=== PATIENT | male | born 1955 | race Caucasian/White ===

== ENCOUNTER 2020-10-17 22:17 | Emergency (ER) | payer BC ==
[~2020-10-17] VITALS: Ht 188 cm; Wt 86.4 kg
[2020-10-17] MEDS ORDERED: IV NORMAL SALINE 1000ML BAG 1,000 ML IV ONE (23:30)
[2020-10-17] MEDS ORDERED: DIPH,PERTUSS(ACELL),TET VAC/PF 0.5 ML SYRINGE. VAX IM ONE (23:45)
[2020-10-17] MEDS ORDERED: METOCLOPRAMIDE HCL 10 MG/2 ML VIAL. IVP ONE (23:45)
[2020-10-17] MEDS ORDERED: FAMOTIDINE 20 MG/2 ML VIAL IVP ONE (23:45)
--- NOTE | 2020-10-17 23:45 | PHYS DOC ---
Past Medical History Additional Past Medical Histor: VASOVAGAL Past Surgical History: Appendectomy General Adult EDM: Chief Complaint: SYNCOPE HPI: HPI: 65-year-old male past medical history of restless leg syndrome on clonazepam and history of migraine headaches, presents to the ED with complaints of the urge to defecate while he was at a nearby [employer] concert, denies any alcohol or drug use. Patient states he reached the top of the hill, felt dizzy and collapsed to the floor, soiled his pants (bowel movement). Is unsure his last tetanus. States he had been suffering from constipation for the past week, ate [employer] at 6 PM and had one hard bowel movement at the restaurant. Has had multiple loose stools since then. History of "vasovagal" issues 2 years ago at a , was seen at [facility] emergency department/was not admitted. No history of stress test, coronary artery disease or family history of arrhythmia/coronary disease. No outpatient cardiology evaluation. Reports no associated shortness of breath, chest pain or neurologic deficits. Reports some nausea currently. Review of Systems: Review of Systems: Constitutional: Denies fever or chills. [] Eyes: Denies change in visual acuity. [] HENT: Denies nasal congestion or sore throat. [] Respiratory: Denies cough or shortness of breath. [] Cardiovascular: Denies chest pain or edema. [] GI: Denies abdominal pain, nausea, vomiting, bloody stools : Denies dysuria or saddle anesthesia Musculoskeletal: Denies back pain or joint pain. [] Integument: Denies rash or diaphoresis Neurologic: Denies headache, neck pain, focal weakness or sensory changes. [] Endocrine: Denies polyuria or polydipsia. [] Lymphatic: Denies swollen glands. [] Psychiatric: Denies depression or anxiety. [] Heart Score: C/O Chest Pain: No Risk Factors: Risk Factors: DM, Current or recent (<one month) smoker, HTN, HLP, family history of CAD, obesity. Risk Scores: Score 0 - 3: 2.5% MACE over next 6 weeks - Discharge Home Score 4 - 6: 20.3% MACE over next 6 weeks - Admit for Clinical Observation Score 7 - 10: 72.7% MACE over next 6 weeks - Early Invasive Strategies Current Medications: Current Medications Medications (Trade) Dose Ordered Sig/Sheyla Start Time Stop Time Status Last Admin Dose Admin Sodium Chloride 1,000 ml @ 1,000 mls/hr 1X ONCE 10/17/20 23:30 10/18/20 00:29 Allergies: Allergies: Allergies Coded Allergies Type Severity Reaction Last Updated Verified morphine Allergy Unknown 10/17/20 Yes Physical Exam: PE: Constitutional: no acute distress, non-toxic appearance, room smells of stool HENT: Normocephalic, atraumatic, no signs of head or neck trauma, moist mucous membranes with no active bleeding Eyes: PERRLA, EOMI, conjunctiva normal, no discharge. Neck: Normal range of motion, supple, no midline neck pain Cardiovascular: S1/2 present, regular rhythm Lungs & Thorax: Speaking in full sentences, bilateral equal chest rise, no tachypnea or increased work of breathing Abdomen: soft, no tenderness, no hip tenderness, moving all 4 extremities Skin: Warm, dry, Back: No midline spinal step-offs or tenderness, no CVA tenderness. [] Extremities: No tenderness, no cyanosis, no lower extremity edema, 4 cm horizontal abrasion (scabbed/no bleeding) over left anterior knee-able to bend/flex or extend without significant pain, no pain at L fibular head or malleoli, LE pulses intact Neurologic: Alert and oriented X 3, normal motor function, normal sensory function, no focal deficits noted. [] Psychologic: Affect normal, judgement normal, mood normal. [] Nexus C-spine criteria are negative: There is no post midline tenderness, the patient is not intoxicated, there is a normal level of alertness, there are no focal neurologic deficits and there are no distracting injuries. : light brown loose stool in basin Current Patient Data: Vital Signs: Vital Signs Date Time Temp Pulse Resp B/P (MAP) Pulse Ox O2 Delivery O2 Flow Rate FiO2 10/17/20 22:22 97.4 59 20 125/69 97 Room Air 97.4 EKG: EKG: sinus rhythm 50 bpm, no axis deviation, normal intervals, no T wave inversions, no ST elevations or ST depressions Radiology/Procedures: Radiology/Procedures: []IMAGING REPORT Signed PATIENT: RAJESH PRIDE ACCOUNT: [id number] : 1955 LOCATION: ER AGE: 65 SEX: M EXAM STATUS: REG ER ORD. PHYSICIAN: BEBA HEDRICK DO REASON: syncope PROCEDURE: CT HEAD AND CERVICAL SPINE WO EXAM: 1. CT HEAD WITHOUT CONTRAST. 2. CT CERVICAL SPINE WITHOUT CONTRAST. HISTORY: Syncope,. TECHNIQUE: Computed tomography of the head and cervical spine was performed without intravenous contrast. One or more of the following individualized dose reduction techniques were utilized for this examination: 1. Automated exposure control. 2. Adjustment of the mA and/or kV according to patient size. 3. Use of iterative reconstruction technique. COMPARISON: None. FINDINGS: There is no intracranial hemorrhage. Schmidt-white differentiation is preserved. The ventricles are normal in size and position. The visualized paranasal sinuses appear clear. Postoperative changes are noted along both globes. The temporal bones are unremarkable. The calvarium reveals no suspicious lesions. There is a mild levocurvature at the cervicothoracic junction. There is mild osteoarthritis at C1/2. No fractures are identified. Degenerative disc disease is moderate at C5-6 and minimal at other levels for patient age. There is no prevertebral soft tissue swelling. At C2-3, there is a small posterior disc bulge. There is no significant stenosis. At C3-4, there is a small posterior disc bulge. Is mild bilaterally. There is no significant stenosis. At C4-5, facet osteoarthritis is moderate. There is a small posterior disc bulge. There is no clear stenosis. At C5-6, there is a moderate posterior disc-osteophyte complex. Central canal stenosis is moderate with minimal anteroposterior central canal diameter 7 mm. 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 Right middle foraminal stenosis is moderate to severe. At C6-7, there is no significant stenosis. IMPRESSION: 1. No acute intracranial findings. 2. No cervical fracture or acute malalignment. 3. Moderate degenerative changes as above result in moderate central canal stenosis as a moderate to severe right neural foraminal stenosis at C5-6 as above. Electronically signed by: Octavia Zhang MD (10/18/2020 3:02 AM) [facility] DICTATED and SIGNED BY: ALLEGRA ZHANG MD DATE: 10/18/20 [id number] 0 IMAGING REPORT Signed PATIENT: RAJESH PRIDE ACCOUNT: [id number] : 1955 LOCATION: ER AGE: 65 SEX: M EXAM STATUS: DEP ER ORD. PHYSICIAN: BEBA HEDRICK DO REASON: syncope PROCEDURE: PORTABLE CHEST 1V EXAM: CHEST ONE VIEW. HISTORY: Syncope. COMPARISON: None. FINDINGS: A frontal view of the chest is obtained. The left costophrenic angle is partially excluded. There are no confluent infiltrates. There is no pneumothorax or pleural effusion. The heart is not enlarged. IMPRESSION: 1. No confluent infiltrates. Electronically signed by: Octavia Zhang MD (10/18/2020 6:19 AM) [facility] DICTATED and SIGNED BY: ALLEGRA ZHANG MD DATE: 10/18/[id number] 0 IMAGING REPORT Signed PATIENT: RAJESH PRIDE ACCOUNT: [id number] : 1955 LOCATION: ER AGE: 65 SEX: M EXAM STATUS: DEP ER ORD. PHYSICIAN: BEBA HEDRICK DO REASON: left knee abrasion PROCEDURE: KNEE LEFT 3V EXAM: LEFT KNEE, 3 VIEWS. HISTORY: Left knee pain, abrasion. COMPARISON: None. FINDINGS: No fractures are identified. Joint spaces are maintained. Alignment is normal. There is no joint effusion. IMPRESSION: 1. No fracture or joint effusion. Electronically signed by: Octavia Zhang MD (10/18/2020 6:18 AM) [facility] DICTATED and SIGNED BY: ALLEGRA ZHANG MD DATE: 10/18/[id number] 0 Impression: Per [place] syncope rule, patient IS in the low-risk group for serious outcome. Course & Med Decision Making: Course & Med Decision Making Pertinent Labs and Imaging studies reviewed. (See chart for details) Concern for syncope secondary to orthostatic hypotension from fluid losses with copious bowel movements after chronic constipation. CT images unremarkable for any acute trauma. Left knee x-ray unremarkable, patient is able to bear weight. Chest x-ray with no acute process. Will discharge home with strict ED return precautions were given for repeat head injury, neurologic deficits, nausea, vomiting, chest pain, syncope or shortness of breath. Encouraged urgent outpatient follow-up with PMD and cardiology for nonemergent outpatient evaluation. Life-threatening processes were considered but are low suspicion at this time, given history, physical exam and ED workup. Pt was educated on all prescription medications and adverse effects. All patient's questions were answered and pt was stable at time of discharge. Life/limb-threatening differential includes but is not limited to, abdominal aortic aneurysm, aortic dissection, acute coronary syndrome, anemia, valvular disorder, cerebrovascular accident, drug overdose or toxidrome, arrhythmia, prolonged QT syndrome, hemorrhage, heat illness, intracranial hemorrhage, infection including meningitis/encephalitis/sepsis/toxic shock/myocarditis, vertebrobasilar insufficiency, seizure, medication adverse event, illicit drug use, electrolyte disorder I have spoken with the patient and/or caregivers. I explained the patient's condition, diagnoses and treatment plan based on the information available to me at this time. I have answered the patient and/or caregiver's questions and addressed any concerns. The patient and/or caregivers have a good understanding of patient's diagnosis, condition and treatment plan as can be expected at this point. Vital signs have been stable. Patient's condition is stable and appropriate for discharge from the emergency department. Patient will pursue further outpatient evaluation with primary care physician or other designated or consulting physician as outlined in the discharge instructions. The patient and/or caregivers are agreeable to this plan of care and follow-up instructions have been explained in detail. The patient and/or caregivers have received these instructions in written form and have expressed an understanding of the discharge instructions. The patient and/or caregivers are aware that any significant change of condition or worsening of symptoms should prompt immediate return to this or the closest emergency department or call to 911. Cinthya Disclaimer: Cinthya Disclaimer: This electronic medical record was generated, in whole or in part, using a voice recognition dictation system. Departure Departure Impression: Primary Impression: Syncope due to orthostatic hypotension Additional Impression: Need for Tdap vaccination Disposition: HOME / SELF CARE / HOMELESS Condition: STABLE Referrals: EDDIE OCONNOR (PCP) For reevaluation within the next week Patient Instructions: Orthostatic Hypotension, Syncope, VIS, Tetanus, Diphtheria (Td); Tetanus, Diphtheria, Pertussis (Tdap) - CDC Additional Instructions: FOLLOW UP WITH CARDIOLOGY: FOR DEFINITIVE MANAGEMENT of nonemergent evaluation of syncope [facility] [address] [address] BEBA HEDRICK DO Oct 17, 2020 23:44
[2020-10-18 00:04] LABS: CREATININE 1.2 mg/dL (0.7-1.3); GFR 60.8; POTASSIUM 3.9 mmol/L (3.5-5.1)
[2020-10-18 00:11] LABS: ALBUMIN 3.7 g/dL (3.4-5.0); ALBUMIN/GLOBULIN RATIO 1.3 (1.0-1.7); MAGNESIUM 2.4 mg/dL (1.8-2.4); TOTAL BILIRUBIN 0.5 mg/dL (0.2-1.0); TOTAL PROTEIN 6.6 g/dL (6.4-8.2)
[2020-10-18 00:25] LABS: BASO # 0.1 x10^3/uL (0.0-0.2); BASO % 1 % (0-3); EOS # 0.1 x10^3/uL (0.0-0.7); EOS % 1 % (0-3); HEMATOCRIT 44.3 % (39.0-53.0); HEMOGLOBIN 15.3 g/dL (13.0-17.5); LYMPH # 1.3 x10^3/uL (1.0-4.8); LYMPH % 9 % (24-48); MEAN CORPUSCULAR HEMOGLOBIN 30 pg (25-35); MEAN CORPUSCULAR HGB CONC 35 g/dL (31-37); MEAN CORPUSCULAR VOLUME 86 fL (79-100); MONO # 0.9 x10^3/uL (0.0-1.1); MONO % 6 % (0-9); NEUT # 12.8 x10^3/uL (1.8-7.7); NEUT % 84 % (31-73); PLATELET COUNT 219 x10^3/uL (140-400); RED BLOOD COUNT 5.17 x10^6/uL (4.30-5.70); RED CELL DISTRIBUTION WIDTH 13.7 % (11.5-14.5); WHITE BLOOD COUNT 15.2 x10^3/uL (4.0-11.0)
--- NOTE | 2020-10-18 00:49 | EKG ---
[facility] [address] [place] [address] Test Date: 2020-10-18 Test Time: 00:02:32 Pat Name: RAJESH PRIDE Department: Room: Gender: [place]: : 1955 Requested By: BEBA HEDRICK Order Number: [id number] Reading MD: Measurements Intervals [place] Rate: 58 P: 61 DC: 198 QRS: 44 QRSD: 80 T: 83 QT: 442 QTc: 433 Interpretive Statements SINUS RHYTHM NORMAL ECG RI6.02 No previous ECG available for comparison
[2020-10-18 01:06] LABS: % BANDS 2 % (0-9); % BASOS 1 % (0-3); % EOS 1 % (0-5); % LYMPHS 12 % (24-48); % MONOS 5 % (0-10); % SEGS 79 % (35-66); PLT ESTIMATE ADEQUATE (ADEQUATE); TOXIC GRANULATION SLIGHT
--- NOTE | 2020-10-18 03:05 | RAD ---
EXAM: 1. CT HEAD WITHOUT CONTRAST. 2. CT CERVICAL SPINE WITHOUT CONTRAST. HISTORY: Syncope,. TECHNIQUE: Computed tomography of the head and cervical spine was performed without intravenous contr ast. One or more of the following individualized dose reduction techniques were utilized for this exa mination: 1. Automated exposure control. 2. Adjustment of the mA and/or kV according to patient size. 3. Use of iterative reconstruction technique. COMPARISON: None. FINDINGS: There is no intracranial hemorrhage. Schmidt-white differentiation is preserved. The ventricl es are normal in size and position. The visualized paranasal sinuses appear clear. Postoperative changes are noted along both globes. The temporal bones are unremarkable. The calvarium reveals no suspicious lesions. There is a mild levocurvature at the cervicothoracic junction. There is mild osteoarthritis at C1/2. No fractures are identified. Degenerative disc disease is moderate at C5-6 and minimal at other level s for patient age. There is no prevertebral soft tissue swelling. At C2-3, there is a small posterior disc bulge. There is no significant stenosis. At C3-4, there is a small posterior disc bulge. Is mild bilaterally. There is no significant stenosis . At C4-5, facet osteoarthritis is moderate. There is a small posterior disc bulge. There is no clear s tenosis. At C5-6, there is a moderate posterior disc-osteophyte complex. Central canal stenosis is moderate wi th minimal anteroposterior central canal diameter 7 mm. 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 Right middle foraminal stenosis is moderate to severe. At C6-7, there is no significant stenosis. IMPRESSION: 1. No acute intracranial findings. 2. No cervical fracture or acute malalignment. 3. Moderate degenerative changes as above result in moderate central canal stenosis as a moderate to severe right neural foraminal stenosis at C5-6 as above. Electronically signed by: Octavia Zhang MD (10/18/2020 3:02 AM) [facility]
[2020-10-18 04:11] VITALS: BP 136/75
--- NOTE | 2020-10-18 06:20 | RAD ---
EXAM: LEFT KNEE, 3 VIEWS. HISTORY: Left knee pain, abrasion. COMPARISON: None. FINDINGS: No fractures are identified. Joint spaces are maintained. Alignment is normal. There is no joint effu praveen. IMPRESSION: 1. No fracture or joint effusion. Electronically signed by: Octavia Zhang MD (10/18/2020 6:18 AM) [facility]
--- NOTE | 2020-10-18 06:21 | RAD ---
EXAM: CHEST ONE VIEW. HISTORY: Syncope. COMPARISON: None. FINDINGS: A frontal view of the chest is obtained. The left costophrenic angle is partially excluded. There are no confluent infiltrates. There is no pn eumothorax or pleural effusion. The heart is not enlarged. IMPRESSION: 1. No confluent infiltrates. Electronically signed by: Octavia Zhang MD (10/18/2020 6:19 AM) [facility]
== END 2020-10-18 04:30 | disposition home or self-care (01) ==
LOC: ER 22:17
DX: S80.212A Abrasion, left knee, initial encounter (principal); R55 Syncope and collapse; I95.1 Orthostatic hypotension; W18.39XA Other fall on same level, initial encounter; Y93.89 Activity, other specified; Y92.89 Other specified places as the place of occurrence of the external cause; Y99.8 Other external cause status; Z88.5 Allergy status to narcotic agent
CPT/HCPCS: 36415; 70450; 71045; 72125; 73562; 80053; 83735; 83880; 84484; 85007; 85025; 90471; 90715; 93005; 96361; 96374; 96375; 99285; G0480; J2765; J3490; J7030